=== PATIENT | male | born 1965 | race Caucasian/White ===

== ENCOUNTER 2023-08-03 09:56 | Outpatient (AMB) | payer OTHER, SELFPAY ==
--- NOTE | 2023-08-03 10:12 | A.OFFVIS_ITS ---
Intake Vital Signs 08/03/23 10:14 Height 5 ft 6 in Weight 216 lb BMI 34.9 BP 138/90 H Blood Pressure Location Rt brachial Position Sitting Pulse 65 Pulse Source Pulse Oximeter Pulse Oximetry (%) 95 Oxygen Delivery Method Room Air Intake Visit Reasons: ENP-DIZZINESS/GIDDINESS-Confirmed Intake Note: Pt presents today for dizziness , ongoing x 6 months. No other sxs associated. No headaches. Some extremety numbness Supervisor Curing Room Required: Yes Supervisor Curing Room Name: Davin Hunter Allergies No Known Allergies Allergy (Verified 08/03/23 10:23) HPI HPI Comments History of Present Illness Details 58-yr-old male presents for neurological evaluation of: dizziness. PMH includes: h/o RLE claudication., PAD ([facility] [employer] s/p fem-pop bypass 09/2022), CTA 2020 w/ LCIA high-grade stenosis, carotid U/S 04/14/23 w/ <50% b/l carotid stenoses), prior tobacco use, hx TB. [place] Supervisor Curing Room Latha ([id number]) assists w/ translation. History obtained from pt, review of PCP, cardiology, vascular notes, and [facility] records. Pt reports brief episodes of dizziness that started about a year ago, which has been similar in presentation but now more frequent. He believes know that the episodes became more frequent following a RLE vascular stent surgery. Dizziness described as room spinning dizziness which lasts 5-7 minutes. Sometimes but not always has associated neck tightness (may happen other times as well), sometimes palpitations, sometimes a hot/cold sweat. During the dizziness, he just stops doing what he is doing, just sits with head forward. After the episode, he feels ok. He states he has never checked his BP during the episode. He denies any associated headache (states has only had 3 headaches in his whole life), nausea, photo/phono/osmophobia, vision changes, chest pains, SOB, Frequency is 1-2 times per day. This occurs almost every day, has occurred in total 20 times in the last 2 weeks. The episodes can occur at any time. This can be triggered by changing position from sitting to standing, bending over, and sometimes just sitting still. He denies trigger of turning his head or rolling over in bed. Patient endorses: Neck pain, variable BP (states SBP can be 90s-160s). Pt also notes that he probably does not take enough liquids- but does drink coffee, and that he eats only 1 meal per day- a full meal w/ soup, salad, meal at 8pm. He denies taking any snacks during the day. And patient denies: h/o seizures, recent concussions, preceding or recent infections. He is f/b: Zachary Baker MD- vascular Otoniel Mcfarlane MD- cardiology [facility] Medical History (Updated 08/07/23 @ 07:59 by ARSENIO Stearns) Tuberculosis History of tobacco use Occlusion of right femoral-popliteal bypass graft PAD (peripheral artery disease) Claudication of right lower extremity Social History (Updated 08/03/23 @ 10:28 by Radha Hernandez) Alcohol intake: never Patient Tobacco Use Status: Former Tobacco user Review of Systems Const All systems reviewed & are unremarkable except as noted in HPI and below Physical Exam Vital Signs: Last Vital Signs Pulse 65 08/03/23 10:14 BP 138/90 H 08/03/23 10:14 Pulse Ox 95 08/03/23 10:14 Oxygen Delivery Method Room Air 08/03/23 10:14 BMI result Body Mass Index 34.9 Const General: cooperative and no acute distress Orientation/consciousness: patient oriented x3 HEENT Head: Yes normocephalic Resp Effort & Inspection: normal respiratory effort and able to speak in complete sentences Cardio Rate: regular rate Rhythm: regular rhythm Neuro General: patient oriented x3, CN's II-XI intact bilaterally and deep tendon reflexes 2+ bilaterally Gait exam (Neuro): Normal gait present Motor exam (neuro): 5/5 motor strength present throughout Pupils: Normal pupillary reactivity/response: bilateral Psych Appearance: grossly normal Mental Status: mental status grossly normal Speech and movement: Normal speech and movement present Affect: normal affect Attitude: cooperative Thought process: Normal thought process present Assessment & Plan Assessment & Plan (1) Dizziness: Code(s): R42 - Dizziness and giddiness Plan Dizziness does not appear to be vestibular, I suspect that it may simply be r/t pt's habit of taking mostly coffee and eating just 1 meal a a day at 8pm. Pt advised to increase fluid intake, try adding Gatorade or similar electrolyte replacement drink, 16-20oz per day. Pt advised to add small meals/snacks earlier in the day. Asked him to track episodes. Offered to check orthostatic BPs in office today, however pt declined stating he could not stay. Will request that [facility] check orthostatic BP & P x's 3 (laying after 5 minutes, standing, and standing at 1 after 1 min). Also request that pt check his blood pressure and blood sugar during these episodes. Continue ASA, lisinopril, statin as ordered. Follow-up in 3 months or sooner prn. Coding Level of Care Code New Pt Level 4 (82061) Diagnoses Dizziness R42
[2023-08-03 10:14] VITALS: BP 138/90; PULSE 65; O2SAT 95; BMI 34.9
== END 2023-08-03 11:21 | disposition home or self-care (01) ==
PROVIDERS: PCP Internal Medicine; Visit Provider Nurse Practitioner Family
DX: R42 Dizziness and giddiness (principal)
CPT/HCPCS: 99204

== ENCOUNTER → 2023-08-03 09:56 | Outpatient (BNVA) | payer OTHER, SELFPAY | PROVIDERS: PCP Internal Medicine; Visit Provider Nurse Practitioner Family ==

== ENCOUNTER 2023-11-28 14:16 | Outpatient (AMB) | payer OTHER, SELFPAY ==
--- NOTE | 2023-11-28 14:26 | MHC.OFFVIS ---
Intake Vital Signs 11/28/23 14:27 Height 5 ft 6 in Weight 230 lb BMI 37.1 Pulse 97 Pulse Source Pulse Oximeter Pulse Oximetry (%) 98 Oxygen Delivery Method Room Air Intake Visit Reasons: 4 mnts f/u appt-Con w/[facility] - Confirmed Intake Note: Patient presents for 4 month follow up. Everything the same,everything fine Allergies No Known Allergies Allergy (Verified 11/28/23 14:31) HPI HPI Comments History of Present Illness Details 58-yr-old male presents for f/u visit. Pt denies any significant interval medical changes. Pt states he is doing better. Has not had a room spinning dizziness episode in over 1.5 months. He is drinking more fluids throughout the day. He is taking water, juices, tea if his BP is higher, coffee if BP is more normal. Takes 2 mandarin organges w/ am drink. Still only eats 1 meal a day at 8pm. His BP has been well-controlled- usually 120-130s/80-85. [facility] Medical History (Updated 08/07/23 @ 07:59 by ARSENIO Stearns) Tuberculosis History of tobacco use Occlusion of right femoral-popliteal bypass graft PAD (peripheral artery disease) Claudication of right lower extremity Social History Alcohol intake: never Patient Tobacco Use Status: Former Tobacco user Physical Exam Vital Signs: Last Vital Signs Pulse 97 11/28/23 14:27 Pulse Ox 98 11/28/23 14:27 Oxygen Delivery Method Room Air 11/28/23 14:27 BMI result Body Mass Index 37.1 Const General: cooperative and no acute distress Orientation/consciousness: patient oriented x3 Resp Effort & Inspection: normal respiratory effort and able to speak in complete sentences Neuro General: patient oriented x3 Cognition (Neuro): normal cognition Psych Appearance: grossly normal Mental Status: mental status grossly normal Speech and movement: Normal speech and movement present Affect: normal affect Attitude: cooperative Assessment & Plan Assessment & Plan (1) Dizziness: Code(s): R42 - Dizziness and giddiness Plan Dizziness is better. Continue increased fluid intake, try adding Gatorade or similar electrolyte replacement drink, 16-20oz per day. If dizziness worsens, add small meals/snacks earlier in the day. Continue to track episodes. Continue to do home BP checks.. Continue ASA, lisinopril, statin as ordered. Follow-up in 4 months or sooner prn. Coding Level of Care Code Est Pt Level 3 (31606) Diagnoses Dizziness R42
[2023-11-28 14:27] VITALS: PULSE 97; O2SAT 98; BMI 37.1
== END 2023-11-28 15:02 | disposition home or self-care (01) ==
PROVIDERS: PCP Internal Medicine; Visit Provider Nurse Practitioner Family
DX: R42 Dizziness and giddiness (principal)
CPT/HCPCS: 99213

== ENCOUNTER → 2023-11-28 14:16 | Outpatient (BNVA) | payer OTHER, SELFPAY | PROVIDERS: PCP Internal Medicine; Visit Provider Nurse Practitioner Family ==

== ENCOUNTER 2024-03-29 13:39 | Outpatient (AMB) | payer OTHER, SELFPAY ==
--- NOTE | 2024-03-29 13:45 | A.OFFVIS_ITS ---
Vital Signs 03/29/24 14:07 Height 5 ft 6 in Weight 228 lb BMI 36.8 BP 144/78 H Blood Pressure Location Rt brachial Position Sitting Intake Visit Reasons: Follow up Intake Note: Patient presents for follow up. Patient has been doing well with the dizziness [employer]. 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 Cutter Wet Machine, Soo Sinclair (#[id number]), provides [place]ian interpretation. Pt denies any significant interval medical changes. Pt reports he has not had any interval dizziness. He continues to make sure he is drinking enough fluids, which is helping. He is eating 2 meals a day. He does not have any other concerns, other than he mentions some bilateral knee pain especially before it rains. [facility] Medical History (Updated 08/07/23 @ 07:59 by ARSENIO Stearns) Tuberculosis History of tobacco use Occlusion of right femoral-popliteal bypass graft PAD (peripheral artery disease) Claudication of right lower extremity Social History Alcohol intake: never Patient Tobacco Use Status: Former Tobacco user Physical Exam Vital Signs: Last Vital Signs BP 144/78 H 03/29/24 14:07 BMI result Body Mass Index 36.8 Const General: cooperative and no acute distress Orientation/consciousness: patient oriented x3 Resp Effort & Inspection: normal respiratory effort and able to speak in complete sentences Neuro General: patient oriented x3 Cranial nerves: Yes CN's II-XII intact bilaterally Cognition (Neuro): normal cognition Psych Appearance: grossly normal Mental Status: mental status grossly normal Speech and movement: Normal speech and movement present Affect: normal affect Attitude: cooperative Assessment & Plan Assessment & Plan (1) Dizziness: Code(s): R42 - Dizziness and giddiness Category: Medical Plan Dizziness is better. Continue increased fluid intake, may include Gatorade or similar electrolyte replacement drink, 16-20oz per day. Continue 2 meals per day. Continue ASA, lisinopril, statin- per PCP Follow-up prn. Coding Level of Care Code Est Pt Level 3 (88971) Diagnoses Dizziness R42
[2024-03-29 14:07] VITALS: BP 144/78; BMI 36.8
== END 2024-03-29 15:17 | disposition home or self-care (01) ==
PROVIDERS: PCP Internal Medicine; Visit Provider Nurse Practitioner Family
DX: R42 Dizziness and giddiness (principal)
CPT/HCPCS: 99213

== ENCOUNTER → 2024-03-29 13:39 | Outpatient (BNVA) | payer OTHER, SELFPAY | PROVIDERS: PCP Internal Medicine; Visit Provider Nurse Practitioner Family ==